=== PATIENT | female | born 1970 | race Caucasian/White ===

== ENCOUNTER 2021-06-12 17:55 | Emergency (ER) | payer OTHER | END 2021-06-12 21:20 | disposition home or self-care (01) | LOC: FER 17:55 | DX: H53.8 Other visual disturbances (principal); Z87.828 Personal history of other (healed) physical injury and trauma; F17.210 Nicotine dependence, cigarettes, uncomplicated; Z88.2 Allergy status to sulfonamides; Z88.5 Allergy status to narcotic agent; Z91.040 Latex allergy status | CPT/HCPCS: 70450 ==